=== PATIENT | male | born 1990 | race African-American/Black ===

== ENCOUNTER 2017-04-25 07:21 | Emergency (ER) | payer OTHER ==
[~2017-04-25] VITALS: Ht 188 cm; Wt 79.4 kg
[2017-04-25] MEDS ORDERED: PENICILLIN V P500 MG PO (08:32)
[2017-04-25] MEDS ORDERED: NORCO 5-325 TA1 EACH PO (08:33)
== END 2017-04-25 08:40 | disposition home or self-care (01) ==
LOC: ED 07:21
DX: K04.7 Periapical abscess without sinus (principal)
CPT/HCPCS: 99283

== ENCOUNTER 2017-04-27 11:25 | Emergency (ER) | payer OTHER ==
[~2017-04-27] VITALS: Ht 188 cm; Wt 79.4 kg
[~2017-04-27 11:25] MED LIST: NORCO 5-325 TA1 EACH PO; PENICILLIN V P500 MG PO
== END 2017-04-27 11:39 | disposition home or self-care (01) ==
LOC: ED 11:25
DX: Z00.8 Encounter for other general examination (principal)